=== PATIENT | female | born 1950 | race Caucasian/White ===

== ENCOUNTER 2017-03-15 17:37 | Emergency (ER) | payer SELFPAY ==
[2017-03-15] MEDS ORDERED: NORMAL SALINE 1000 ML 500 ML IV ONE (19:07)
--- NOTE | 2017-03-15 19:10 | ER Document Report ---
ED Medical Screen (RME) - General Chief Complaint: Chest Wall Injury Stated Complaint: STOMACH PAIN Time Seen by Provider: 03/15/17 18:55 Notes: 66-year-old female here pain radiating to the left chest ongoing for the past 1- 2 weeks but has progressively worsened here recently. She has also had associated lightheadedness and diaphoresis with the chest pain. She has been taking ibuprofen which initially did help with the symptoms however has not been helping recently. The symptoms started after a rocking chair hit her in the middle of her chest. Patient states that the chest pain is worse with [place] as well as moving her torso. She does not normally have a high heart rate and does not know what her normal heart rate is. No prior history of PE/DVT but states that multiple family members have had blood clots. No estrogen use. No prior history of cancer. EXAM Tachycardic low 100s Clear to auscultation bilaterally Mild tenderness to palpation inferior sternum - Related Data Allergies/Adverse Reactions: codeine Allergy (Verified 03/15/17 18:51) paroxetine [From Paxil] Allergy (Verified 03/15/17 18:52) Sulfa (Sulfonamide Antibiotics) Allergy (Verified 03/15/17 18:52) Past Medical History - Social History Chew tobacco use (# tins/day): No Frequency of alcohol use: None Drug Abuse: None Renal/ Medical History: Denies: Hx Peritoneal Dialysis Psychiatric Medical History: Reports: Hx Depression - insomia Past Surgical History: Reports: Hx Abdominal Surgery - gastric bypass, Hx Cholecystectomy, Hx Vascular Surgery - breast reduction, tummy tuck Physical Exam - Vital signs Vitals: Temp Pulse Resp BP Pulse Ox 98.2 F 106 H 18 131/91 H 97 03/15/17 18:14 03/15/17 18:14 03/15/17 18:14 03/15/17 18:14 03/15/17 18:14 Course - Vital Signs Vital signs: Temp Pulse Resp BP Pulse Ox 98.2 F 106 H 18 131/91 H 97 03/15/17 18:14 03/15/17 18:14 03/15/17 18:14 03/15/17 18:14 03/15/17 18:14
[2017-03-15 19:37] LABS: ABSOLUTE EOSINOPHILS # (AUTO) 0.1 10^3/uL (0.0-0.6); ABSOLUTE LYMPHOCYTES (AUTO) 2.1 10^3/uL (0.5-4.7); ABSOLUTE MONOCYTES (AUTO) 0.4 10^3/uL (0.1-1.4); ABSOLUTE NEUT (AUTO) 4.7 10^3/uL (1.7-8.2); BASOPHILS % (AUTO) 0.5 % (0-2); EOSINOPHILS % (AUTO) 1.6 % (0-6); HEMATOCRIT 41.7 % (36.0-47.0); LYMPHOCYTES % (AUTO) 28.9 % (13-45); MEAN CORPUSCULAR HGB CONC 33.6 g/dL (32.0-36.0); MEAN CORPUSCULAR VOLUME 86 fl (80-97); PLATELET COUNT 327 10^3/uL (150-450); RED BLOOD COUNT 4.84 10^6/uL (3.72-5.28); TOTAL CELLS COUNTED % (AUTO) 100 %; WHITE BLOOD COUNT 7.4 10^3/uL (4.0-10.5)
[2017-03-15 20:01] LABS: ANION GAP 13 (5-19); BLOOD UREA NITROGEN 21 mg/dL (7-20); CALCIUM 10.2 mg/dL (8.4-10.2); CARBON DIOXIDE 30 mmol/L (22-30); CHLORIDE 101 mmol/L (98-107); GLUCOSE 119 mg/dL (75-110); POTASSIUM 4.3 mmol/L (3.6-5.0); SODIUM 143.6 mmol/L (137-145)
[2017-03-15] MEDS ORDERED: NORMAL SALINE 1000 ML 1,000 ML IV ONE (20:55)
[2017-03-15] MEDS ORDERED: LIDOCAINE 5% (700 MG) TRANSDERMAL ADH..PATCH TP ONE (20:56)
--- NOTE | 2017-03-15 20:58 | ER Document Report ---
ED General - General Chief Complaint: Chest Wall Injury Stated Complaint: STOMACH PAIN Time Seen by Provider: 03/15/17 18:55 Notes: Patient is a 66-year-old female without past medical history who presents with 3 weeks to 1 month of chest wall discomfort that has gotten progressively worse. Patient states that she was struck in the chest with the back of a rocking chair approximately 3 weeks ago. She states in the rocking chair hit her chest she heard a crack and has had a severe, constant, throbbing pain in the central chest radiating to her left lower ribs since that time. She says the pain is worsened by taking a deep breath. She has tried ibuprofen with improvement of the pain. She was seen in urgent care several days ago and told that her ribs were bruised that would require time to heal. However she states that she began to feel more short of breath for the last several days which is what prompted her to come to the emergency department for further assessment. Patient does also note that she recently started a weight loss supplement over- the-counter and has been feeling some side effects as a result of this medication including frequent diaphoresis, somewhat increased shakiness and tremulousness, as well as nausea. She notes decreased oral intake since beginning this medication. She denies any hemoptysis. No history of DVT or pulmonary embolus. She does not take any form of estrogen. - Related Data Allergies/Adverse Reactions: codeine Allergy (Verified 03/15/17 18:51) paroxetine [From Paxil] Allergy (Verified 03/15/17 18:52) Sulfa (Sulfonamide Antibiotics) Allergy (Verified 03/15/17 18:52) Past Medical History - General Information source: Patient - Social History Smoking Status: Former Smoker Chew tobacco use (# tins/day): No Frequency of alcohol use: None Drug Abuse: None Family History: Reviewed & Not Pertinent Patient has suicidal ideation: No Patient has homicidal ideation: No Renal/ Medical History: Denies: Hx Peritoneal Dialysis Psychiatric Medical History: Reports: Hx Depression - insomia Past Surgical History: Reports: Hx Abdominal Surgery - gastric bypass, Hx Cholecystectomy, Hx Vascular Surgery - breast reduction, tummy tuck Review of Systems - Review of Systems Notes: Constitutional: Negative for fever. HENT: Negative for sore throat. Eyes: Negative for visual changes. Cardiovascular: Positive for chest pain. Respiratory: Positive for shortness of breath. Gastrointestinal: Negative for abdominal pain, vomiting or diarrhea. Genitourinary: Negative for dysuria. Musculoskeletal: Negative for back pain. Skin: Negative for rash. Neurological: Negative for headaches, weakness or numbness. 10 point ROS negative except as marked above and in HPI. Physical Exam - Vital signs Vitals: Temp Pulse Resp BP Pulse Ox 98.2 F 106 H 18 131/91 H 97 03/15/17 18:14 03/15/17 18:14 03/15/17 18:14 03/15/17 18:14 03/15/17 18:14 Interpretation: Tachycardic Notes: PHYSICAL EXAMINATION: GENERAL: Well-appearing, well-nourished and in no acute distress. HEAD: Atraumatic, normocephalic. EYES: Pupils equal round and reactive to light, extraocular movements intact, sclera anicteric, conjunctiva are normal. ENT: nares patent, oropharynx clear without exudates. Moist mucous membranes. NECK: Normal range of motion, supple without lymphadenopathy LUNGS: Breath sounds clear to auscultation bilaterally and equal. No wheezes rales or rhonchi. HEART: Regular tachycardia without murmurs Chest wall: There is mild bruising underneath the lower ribs on the left side as well as over the tissue overlying the xiphoid process ABDOMEN: Soft, nontender, normoactive bowel sounds. No guarding, no rebound. No masses appreciated. EXTREMITIES: Normal range of motion, no pitting or edema. No cyanosis. NEUROLOGICAL: No focal neurological deficits. Moves all extremities spontaneously and on command. PSYCH: Normal mood, normal affect. SKIN: Warm, Dry, normal turgor, no rashes or lesions noted. Course - Re-evaluation Re-evalutation: 03/15/17 20:56 Patient presents with 2-3 weeks of ongoing central chest pain radiating into her left lower intercostal spaces after being struck in the chest with a rocking chair. However, patient does have abnormal vital signs on presentation with a prominent tachycardia. Her heart rate jumps from 108-136 when going from sitting to standing position I do suspect a component of orthostasis. However given her pleuritic chest pain the persistency of her symptoms I do also agree that a CT of the chest should be performed to exclude an acute pulmonary embolus. Given that her symptoms have been persistent now for almost a month a D-dimer assay test will unfortunately not be reliable to exclude a PE as this would be a chronic pulmonary embolus at this point. Will provide IV fluids, pain control, and reassess after CT has been completed. Labs are unremarkable. I do not clinically suspect an aortic dissection or ACS given clinical history and exam. Patient is overall extremely well in appearance and in no distress. She does note that she recently started taking a weight loss supplement which may also be contribute into her tachycardia. 03/15/17 22:15 CT of the chest is normal without any evidence of acute fracture or pulmonary emboli. Patient's heart has normalized and she states she feels much much better after fluids. Suspect that her symptoms are overall secondary to bruising of the chest wall from blunt trauma as well as dehydration and a medication effect. We discussed this at length. At this time will discharge with return precautions and follow-up recommendations. Verbal discharge instructions given a the bedside and opportunity for questions given. Medication warnings reviewed. Patient is in agreement with this plan and has verbalized understanding of return precautions and the need for primary care follow-up in the next 24-72 hours. - Vital Signs Vital signs: Temp Pulse Resp BP Pulse Ox 98.2 F 106 H 16 138/89 H 96 03/15/17 18:14 03/15/17 18:14 03/15/17 22:00 03/15/17 22:00 03/15/17 22:00 - Laboratory Result Diagrams: 03/15/17 19:27 03/15/17 19:27 Laboratory results interpreted by me: 03/15/17 19:27 BUN 21 H Glucose 119 H - Diagnostic Test Radiology reviewed: Reports reviewed Discharge - Discharge Clinical Impression: Chest wall pain, Orthostasis, Dehydration Condition: Good Disposition: HOME, SELF-CARE Additional Instructions: Your CT scan today does not show any fractures of your sternum or ribs. Thankfully, it does not show any evidence of a clot in your lung either. Please continue to take plenty of fluids. Continue take ibuprofen or Tylenol as needed for discomfort. You can also apply heat or cold to the area if it helps your pain. Please follow-up with your primary care doctor in the next several days. Return for any additional concerns your may have including worsening of your pain, coughing blood, passing out, worsening shortness of breath, or any other symptoms that are worrisome to you. Referrals: JAYA LAWSON FNP [Primary Care Provider] - Follow up as needed
--- NOTE | 2017-03-15 22:02 | RADIOLOGY REPORT (SQ) ---
EXAM DESCRIPTION: CTA CHEST COMPLETED DATE/TIME: 03/15/2017 9:15 pm REASON FOR STUDY: CP tachycardic; eval for PE COMPARISON: None. TECHNIQUE: CT scan of the chest performed using helical scanning technique with dynamic intravenous contrast injection. Images reviewed with lung, soft tissue and bone windows. Reconstructed coronal and sagittal MPR images reviewed. Additional 3 dimensional post-processing performed to develop Maximal Intensity Projection images (MD P). All images stored on PACS. All CT scanners at this facility use dose modulation, iterative reconstruction, and/or weight based d osing when appropriate to reduce radiation dose to as low as reasonably achievable (ALARA). [facility]: Dose Right [facility]: CareDose [facility]: Dose Right [facility]: Teradose 4D [facility]: Clinical Insight CONTRAST TYPE AND DOSE: contrast/concentration: Isovue 370.00 mg/ml; Total Contrast Delivered: 74.0 ml; Total Saline Delivered: 40.0 ml RENAL FUNCTION: GFR > 60. RADIATION DOSE: CT Rad equipment meets quality standard of care and radiation dose reduction techniq ues were employed. CTDIvol: 9.9 - 19.9 mGy. DLP: 723 mGy-cm. . LIMITATIONS: Contrast bolus not optimized for the pulmonary arteries. FINDINGS: LUNGS AND PLEURA: No masses, consolidation, pneumothorax. Minimal basilar subsegmental at electasis -subpleural scarring. No pleural effusions, calcifications. AORTA AND GREAT VESSELS: No aneurysm. Contrast bolus not optimized for the aorta. HEART: No pericardial effusion. No significant coronary artery calcifications. PULMONARY ARTERIES: No emboli visualized in the main pulmonary arteries. Contrast bolus timing limit s evaluation of the segmental branches. HILAR AND MEDIASTINAL STRUCTURES: No identified masses or abnormal nodes. HARDWARE: None in the chest. UPPER ABDOMEN: No significant findings. Limited exam. THYROID AND OTHER SOFT TISSUES: No masses. No adenopathy. BONES: No acute finding. Multiple old left rib fractures 3D MIPS: Confirm above findings. OTHER: No other significant finding. IMPRESSION: No emboli visualized in the main pulmonary arteries. Contrast bolus timing limits evalu ation of the segmental branches. No consolidation or pleural effusion. COMMENT: Quality ID # [id number]: Final reports with documentation of one or more dose reduction techniques (e.g., Automated exposure control, adjustment of the mA and/or kV according to patient size, use of iterative reconstruction technique) TECHNICAL DOCUMENTATION: JOB ID: [id number] [place]-72 2010 [facility] [employer]- All Rights Reserved
[2017-03-15 22:10] VITALS: BP 138/89
== END 2017-03-15 22:49 | disposition home or self-care (01) ==
LOC: ER 17:37
DX: S20.212A Contusion of left front wall of thorax, initial encounter (principal); R07.89 Other chest pain; W22.8XXA Striking against or struck by other objects, initial encounter; E86.0 Dehydration; R06.02 Shortness of breath; R61 Generalized hyperhidrosis; R00.0 Tachycardia, unspecified; R11.0 Nausea; R25.1 Tremor, unspecified; Z88.5 Allergy status to narcotic agent; Z88.8 Allergy status to other drugs, medicaments and biological substances; Z88.2 Allergy status to sulfonamides; Z87.891 Personal history of nicotine dependence; Z98.84 Bariatric surgery status
CPT/HCPCS: 99284; 36415; 85025; 80048; 84484; 71275; J7030

== ENCOUNTER 2017-03-24 17:36 | Emergency (ER) | payer SELFPAY ==
[2017-03-24] MEDS ORDERED: NORMAL SALINE 1000 ML 1,000 ML IV ONE (18:37)
[2017-03-24] MEDS ORDERED: HALOPERIDOL LACTATE INJ 5 MG/1 ML VIAL IV ONE (18:37)
[2017-03-24] MEDS ORDERED: DIPHENHYDRAMINE HCL 50 MG/ML VIAL IV ONE (18:37)
--- NOTE | 2017-03-24 18:38 | ER Document Report ---
ED Medical Screen (RME) - General Chief Complaint: Abdominal Pain Stated Complaint: ABDOMINAL PAIN Time Seen by Provider: 03/24/17 18:35 Mode of Arrival: Ambulatory Information source: Patient Notes: 66-year-old female presents with complaints of nausea vomiting diarrhea believing that she is got food poisoning from on the soup. Patient states she cannot sit up and lays herself on the floor I have greeted and performed a rapid initial assessment of this patient. A comprehensive ED assessment and evaluation of the patient, analysis of test results and completion of the medical decision making process will be conducted by additional ED providers. PHYSICAL EXAMINATION: GENERAL patient is quite dramatic laying herself on the floor HEAD: Atraumatic, normocephalic. EYES: Pupils equal round extraocular movements intact, conjunctiva are normal. ENT: Nares patent NECK: Normal range of motion LUNGS: No respiratory distress Musculoskeletal: Normal range of motion NEUROLOGICAL: Normal speech, normal gait. PSYCH: Anxious SKIN: Warm, Dry, normal turgor, no rashes or lesions noted. TRAVEL OUTSIDE OF THE [place] IN LAST 30 DAYS: No - Related Data Allergies/Adverse Reactions: codeine Allergy (Verified 03/24/17 17:39) paroxetine [From Paxil] Allergy (Verified 03/24/17 17:39) Sulfa (Sulfonamide Antibiotics) Allergy (Verified 03/24/17 17:39) Past Medical History Renal/ Medical History: Denies: Hx Peritoneal Dialysis Psychiatric Medical History: Reports: Hx Depression - insomia Past Surgical History: Reports: Hx Abdominal Surgery - gastric bypass, Hx Cholecystectomy, Hx Vascular Surgery - breast reduction, tummy tuck Physical Exam - Vital signs Vitals: Temp Pulse Resp BP Pulse Ox 98.5 F 110 H 20 113/82 98 03/24/17 17:45 03/24/17 17:45 03/24/17 17:45 03/24/17 17:45 03/24/17 17:45 Course - Vital Signs Vital signs: Temp Pulse Resp BP Pulse Ox 98.5 F 110 H 20 113/82 98 03/24/17 17:45 03/24/17 17:45 03/24/17 17:45 03/24/17 17:45 03/24/17 17:45
[2017-03-24] MEDS ORDERED: MORPHINE SULFATE 10 MG/ML INJ IV ONE (19:40)
[2017-03-24] MEDS ORDERED: ONDANSETRON HCL INJ/PF 4 MG/2 ML SDV IV ONE (19:40)
[2017-03-24] MEDS ORDERED: SUCRALFATE 1 GM TABLET PO ONE (19:43)
[2017-03-24] MEDS ORDERED: FAMOTIDINE 20 MG TABLET PO ONE (19:43)
--- NOTE | 2017-03-24 19:43 | ER Document Report ---
ED GI/ - General Chief Complaint: Abdominal Pain Stated Complaint: ABDOMINAL PAIN Time Seen by Provider: 03/24/17 18:35 Mode of Arrival: Ambulatory Notes: Patient is a 66-year-old female who comes emergency department for chief complaint of vomiting and diarrhea. She states she has had about 20 episodes of diarrhea starting this morning. She states that she has a lot of belching with "[place] onion soup taste". That was the last thing she ate last night. She denies fever or chills, sick contacts, flank pain. Pain is mostly lower abdomen. She denies any raw food, recent travel, recent antibiotics. Past medical history of gastric bypass, insomnia. TRAVEL OUTSIDE OF THE [place] IN LAST 30 DAYS: No - Related Data Allergies/Adverse Reactions: codeine Allergy (Verified 03/24/17 17:39) paroxetine [From Paxil] Allergy (Verified 03/24/17 17:39) Sulfa (Sulfonamide Antibiotics) Allergy (Verified 03/24/17 17:39) Past Medical History - General Information source: Patient - Social History Smoking Status: Never Smoker Chew tobacco use (# tins/day): No Frequency of alcohol use: Occasional Drug Abuse: None Lives with: Family Family History: Reviewed & Not Pertinent Patient has suicidal ideation: No Patient has homicidal ideation: No Renal/ Medical History: Denies: Hx Peritoneal Dialysis Psychiatric Medical History: Reports: Hx Depression - insomia Past Surgical History: Reports: Hx Abdominal Surgery - gastric bypass, Hx Cholecystectomy, Hx Vascular Surgery - breast reduction, tummy tuck Review of Systems - Review of Systems Constitutional: No symptoms reported EENT: No symptoms reported Cardiovascular: No symptoms reported Respiratory: No symptoms reported Gastrointestinal: See HPI Genitourinary: No symptoms reported Female Genitourinary: No symptoms reported Musculoskeletal: No symptoms reported Skin: No symptoms reported Hematologic/Lymphatic: No symptoms reported Neurological/Psychological: No symptoms reported Physical Exam - Vital signs Vitals: Temp Pulse Resp BP Pulse Ox 98.5 F 110 H 20 113/82 98 03/24/17 17:45 03/24/17 17:45 03/24/17 17:45 03/24/17 17:45 03/24/17 17:45 Interpretation: Normal - General General appearance: Appears well, Alert In distress: None - HEENT Head: Normocephalic, Atraumatic Eyes: Normal Pupils: PERRL - Respiratory Respiratory status: No respiratory distress Chest status: Nontender Breath sounds: Normal Chest palpation: Normal - Cardiovascular Rhythm: Regular. No: Tachycardia - No tachycardia on my exam Heart sounds: Normal auscultation, S1 appreciated, S2 appreciated Murmur: No - Abdominal Inspection: Normal Distension: No distension Bowel sounds: Normal Tenderness: Nontender. No: Tender - Soft benign abdomen Organomegaly: No organomegaly - Back Back: Normal, Nontender. No: Tender - Extremities General upper extremity: Normal inspection, Nontender, Normal strength, Normal temperature General lower extremity: Normal inspection, Nontender, Normal strength, Normal temperature - Neurological Neuro grossly intact: Yes Cognition: Normal Orientation: AAOx4 [place] Coma Scale Eye Opening: Spontaneous [place] Coma Scale Verbal: Oriented [place] Coma Scale Motor: Obeys Commands [place] Coma Scale Total: 15 Speech: Normal Motor strength normal: LUE, RUE, LLE, RLE Sensory: Normal - Psychological Associated symptoms: Normal affect, Normal mood - Skin Skin Temperature: Warm Skin Moisture: Dry Skin Color: Normal Course - Re-evaluation Re-evalutation: Patient alert, slightly dramatic, well-appearing, has mildly dry mucous membranes and mild tachycardia. Abdominal exam has very minimal lower abdominal tenderness without guarding. Treating symptomatically, rehydrating, checking labs and stool. CBC, chemistry unremarkable. Patient gets very anxious and shifty when she has her vital signs checked and the results were tachycardic, however patient is not tachycardic when I am listening to her. After medications, fluids, patient tolerating p.o. without any difficulty, walking around, asking to leave. Diarrhea does not show any concerning abnormalities. Because she is tolerating p.o., has benign abdomen, does not have any concerning findings, and is not tachycardic on my exam, and is not hypotensive, she was discharged with medications, follow-up, and return precautions. Patient states satisfaction and agreement. - Vital Signs Vital signs: Temp Pulse Resp BP Pulse Ox 99.5 F 118 H 16 120/65 95 03/24/17 22:31 03/24/17 22:31 03/24/17 22:31 03/24/17 22:31 03/24/17 22:31 - Laboratory Result Diagrams: 03/24/17 20:23 03/24/17 20:23 Laboratory results interpreted by me: 03/24/17 03/24/17 20:23 20:23 Seg Neuts % (Manual) 87 H Lymphocytes % (Manual) 7 L Monocytes % (Manual) 2 L Abs Neuts (Manual) 8.7 H Potassium 5.1 H BUN 34 H Glucose 163 H Alkaline Phosphatase 132 H Discharge - Discharge Clinical Impression: Nausea vomiting and diarrhea, Dehydration Condition: Stable Disposition: HOME, SELF-CARE Additional Instructions: Continue to rehydrate, start with bland food and slowly progress. Your symptoms and workup are most consistent with a viral gastroenteritis. We have a stool culture growing in our lab just in case. Take the given medication tonight as directed if needed, take the Carafate daily as prescribed as well. Follow-up with primary care. Return if you worsen including uncontrolled vomiting, spiking fevers, black or bloody bowel movements, or any other concerning symptoms. Prescriptions: Ondansetron [Zofran Odt 4 mg Tablet] 1 - 2 tab PO Q4H PRN #15 tab.rapdis PRN Reason: For Nausea/Vomiting Sucralfate [Carafate 1 gm Tablet] 1 gm PO QID #20 tablet
[2017-03-24 20:53] LABS: HEMATOCRIT 43.7 % (36.0-47.0); HEMOGLOBIN 14.7 g/dL (12.0-15.5); MEAN CORPUSCULAR HEMOGLOBIN 28.9 pg (27.0-33.4); MEAN CORPUSCULAR HGB CONC 33.8 g/dL (32.0-36.0); MEAN CORPUSCULAR VOLUME 86 fl (80-97); PLATELET COUNT 300 10^3/uL (150-450); WHITE BLOOD COUNT 9.7 10^3/uL (4.0-10.5)
[2017-03-24 20:55] LABS: ALANINE AMINOTRANSFERASE 31 U/L (9-52); ALBUMIN 4.6 g/dL (3.5-5.0); ALKALINE PHOSPHATASE 132 U/L (38-126); ANION GAP 14 (5-19); ASPARTATE AMINO TRANSFERASE 30 U/L (14-36); BILIRUBIN,DIRECT 0.3 mg/dL (0.0-0.4); BILIRUBIN,TOTAL 0.8 mg/dL (0.2-1.3); BLOOD UREA NITROGEN 34 mg/dL (7-20); CARBON DIOXIDE 23 mmol/L (22-30); CHLORIDE 107 mmol/L (98-107); GLUCOSE 163 mg/dL (75-110); LIPASE 45.4 U/L (23-300); POTASSIUM 5.1 mmol/L (3.6-5.0); SODIUM 143.8 mmol/L (137-145); TOTAL PROTEIN 7.6 g/dL (6.3-8.2)
[2017-03-24 21:09] LABS: ABSOLUTE LYMPHOCYTES# (MANUAL) 0.8 10^3/uL (0.5-4.7); ABSOLUTE MONOCYTES # (MANUAL) 0.2 10^3/uL (0.1-1.4); ABSOLUTE NEUTROPHILS# (MANUAL) 8.7 10^3/uL (1.7-8.2); BAND NEUTROPHILS % (MANUAL) 3 % (3-5); BASOPHILS % (MANUAL) 0 % (0-2); EOSINOPHILS % (MANUAL) 0 % (0-6); LYMPHOCYTES % (MANUAL) 7 % (13-45); MONOCYTES % (MANUAL) 2 % (3-13); SEGMENTED NEUTROPHILS % (MAN) 87 % (42-78); TOTAL CELLS COUNTED 100
[2017-03-24 21:12] LABS: PLATELET COMMENT ADEQUATE; RBC MORPHOLOGY COMMENT NORMO-CYTIC/CHROMIC
[2017-03-24] MEDS ORDERED: ONDANSETRON ODT 4 MG TAB (6 TAB/ER DISP) PO PRN (22:14)
[2017-03-24] MEDS ORDERED: HYDROCODONE/ACETAMINOPHEN 5-325 MG (6 TAB/ER DISP) PO PRN (22:14)
[2017-03-24 22:40] VITALS: BP 120/65
== END 2017-03-24 22:40 | disposition home or self-care (01) ==
LOC: ER 17:36
DX: E86.0 Dehydration (principal); R11.2 Nausea with vomiting, unspecified; R19.7 Diarrhea, unspecified; R10.9 Unspecified abdominal pain; Z88.6 Allergy status to analgesic agent; Z88.2 Allergy status to sulfonamides; Z98.84 Bariatric surgery status; Z90.49 Acquired absence of other specified parts of digestive tract
CPT/HCPCS: 99284; 96361; 96374; 96375; 36415; 87045; 89055; 87205; 83690; 85025; 82272; 87077; 80053; 87186; 87493; J2270; J2405; J7030

== ENCOUNTER 2018-06-30 23:55 | Emergency (ER) | payer MEDICARE ==
--- NOTE | 2018-07-01 01:50 | ER Document Report ---
ED General - General Chief Complaint: Numbness of Arm Stated Complaint: NUMBNESS Time Seen by Provider: 07/01/18 00:26 Notes: Patient is a 67-year-old female without chronic medical problems who presents with paresthesias of her left upper extremity as well as a paresthesia in a circular area below her left lip. States that the symptoms started approximately 7-8 hours prior to arrival. States that initially it was just in her left upper extremity. Describes it as a relatively abrupt onset of a tingling, sleeping sensation the entirety of her left upper extremity but most prominent in the fingertips. Patient states that she began reading online what this could be, decided to take aspirin but then began to feel some tingling below her left lip. This scared her very much so she came to the emergency department for further assessment. Nothing has been noted to improve or worsen her symptoms since onset. She denies any history of similar symptoms in the past. She has not seen her primary doctor regarding today's concerns. She denies any loss of sensation, difficulty walking, difficulty speaking, headache, neck pain, or chest discomfort. She regards her symptoms as being mild to moderate. Constant since onset and still present. TRAVEL OUTSIDE OF THE [place] IN LAST 30 DAYS: No - Related Data Allergies/Adverse Reactions: codeine Allergy (Verified 03/24/17 17:39) paroxetine [From Paxil] Allergy (Verified 03/24/17 17:39) Sulfa (Sulfonamide Antibiotics) Allergy (Verified 03/24/17 17:39) Past Medical History - General Information source: Patient - Social History Smoking Status: Former Smoker Chew tobacco use (# tins/day): Yes Frequency of alcohol use: None Drug Abuse: None Lives with: Alone Family History: Reviewed & Not Pertinent Patient has suicidal ideation: No Patient has homicidal ideation: No Renal/ Medical History: Denies: Hx Peritoneal Dialysis Psychiatric Medical History: Reports: Hx Depression - insomia Past Surgical History: Reports: Hx Abdominal Surgery - gastric bypass, Hx Cholecystectomy, Hx Vascular Surgery - breast reduction, tummy tuck Review of Systems - Review of Systems Notes: Constitutional: Negative for fever. HENT: Negative for sore throat. Eyes: Negative for visual changes. Cardiovascular: Negative for chest pain. Respiratory: Negative for shortness of breath. Gastrointestinal: Negative for abdominal pain, vomiting or diarrhea. Genitourinary: Negative for dysuria. Musculoskeletal: Negative for back pain. Skin: Negative for rash. Neurological: Negative for headaches, positive for paresthesias to the left upper extremity and below the left lip 10 point ROS negative except as marked above and in HPI. Physical Exam - Vital signs Vitals: Temp Pulse Resp BP Pulse Ox 98.6 F 68 15 136/83 H 96 06/30/18 23:55 06/30/18 23:55 06/30/18 23:55 06/30/18 23:55 06/30/18 23:55 Interpretation: Normal Notes: PHYSICAL EXAMINATION: GENERAL: Well-appearing, well-nourished and in no acute distress. HEAD: Atraumatic, normocephalic. EYES: Pupils equal round and reactive to light, extraocular movements intact, sclera anicteric, conjunctiva are normal. ENT: nares patent, oropharynx clear without exudates. Moist mucous membranes. NECK: Normal range of motion, supple without lymphadenopathy LUNGS: Breath sounds clear to auscultation bilaterally and equal. No wheezes rales or rhonchi. HEART: Regular rate and rhythm without murmurs ABDOMEN: Soft, nontender, normoactive bowel sounds. No guarding, no rebound. No masses appreciated. EXTREMITIES: Normal range of motion, no pitting or edema. No cyanosis. NEUROLOGICAL: Face symmetric. Tongue protrudes midline. Extraocular motions intact. Pupils are 2 mm and equally reactive. Normal speech, normal gait. 5 out of 5 strength in both the distal and proximal upper and lower extremities bilaterally. Sensation is grossly intact throughout. Finger to nose testing normal. Pronator drift normal. PSYCH: Moderately anxious SKIN: Warm, Dry, normal turgor, no rashes or lesions noted. Course - Re-evaluation Re-evalutation: 07/01/18 01:34 Patient presents with paresthesias of the left upper extremity as well as a small portion of paresthesia around her left lower face. She states the circular area just below the level of her lip. And a stroke scale 0. Patient has no loss of sensation. Able to ambulate without any difficulty. No motor weakness. No headache, neck pain or confusion. Patient's clinical history is not consistent with an acute stroke given distribution and characterization of her symptoms. There is nothing to suggest that the patient has any sensory loss and again her neurologic exam is completely unremarkable. Moreover the pattern of her sensory complaint is not consistent with a central pattern. Labs do not suggest atypical presentation of ACS. Patient's symptoms been ongoing for greater than 8 hours at time of presentation I do not believe serial troponins are indicated particularly given my low clinical suspicion for a cardiac etiology of her symptoms. I advised that should the patient persist with symptoms for greater than 24more she should follow with her primary care doctor for an MRI of her head to definitively exclude again for which have a very low suspicion. At this time will discharge with return precautions and follow-up recommendations. Verbal discharge instructions given a the bedside and opportunity for questions given. Medication warnings reviewed. Patient is in agreement with this plan and has verbalized understanding of return precautions and the need for primary care follow-up in the next 24-72 hours. - Vital Signs Vital signs: Temp Pulse Resp BP Pulse Ox 98.6 F 68 19 142/83 H 97 06/30/18 23:55 06/30/18 23:55 07/01/18 03:01 07/01/18 03:01 07/01/18 03:01 - Laboratory Result Diagrams: 07/01/18 01:49 07/01/18 01:49 Laboratory results interpreted by me: 07/01/18 01:49 Chloride 108 H Carbon Dioxide 21 L - EKG Interpretation by Me Additional EKG results interpreted by me: 07/01/18 01:51 Sinus rhythm, rate 69. No ST elevations or depressions. QTC is 429. Discharge - Discharge Clinical Impression: Paresthesia of left upper extremity, Facial paresthesia Condition: Good Disposition: HOME, SELF-CARE Additional Instructions: You were seen today for numbness and tingling that does not appear to be from a stroke or any other life threatening cause. Labs are normal. Please follow-up with your primary care doctor within the next 24-48 hours. MRI of your head will be reasonable if your symptoms do not resolve spontaneously. Return if you develop loss of sensation, weakness, pass out, develop a severe headache, chest pain or any other symptoms that are worrisome to you.
[2018-07-01 02:03] LABS: ABSOLUTE EOSINOPHILS # (AUTO) 0.2 10^3/uL (0.0-0.6); ABSOLUTE LYMPHOCYTES (AUTO) 2.2 10^3/uL (0.5-4.7); ABSOLUTE MONOCYTES (AUTO) 0.5 10^3/uL (0.1-1.4); ABSOLUTE NEUT (AUTO) 3.9 10^3/uL (1.7-8.2); BASOPHILS % (AUTO) 0.7 % (0-2); EOSINOPHILS % (AUTO) 2.2 % (0-6); HEMATOCRIT 38.9 % (36.0-47.0); HEMOGLOBIN 13.1 g/dL (12.0-15.5); LYMPHOCYTES % (AUTO) 32.7 % (13-45); MEAN CORPUSCULAR HEMOGLOBIN 28.9 pg (27.0-33.4); MEAN CORPUSCULAR HGB CONC 33.7 g/dL (32.0-36.0); MEAN CORPUSCULAR VOLUME 86 fl (80-97); PLATELET COUNT 258 10^3/uL (150-450); RED BLOOD COUNT 4.54 10^6/uL (3.72-5.28); RED CELL DISTRIBUTION WIDTH 13.8 % (11.5-14.0); SEGMENTED NEUTROPHILS % (AUTO) 57.4 % (42-78); TOTAL CELLS COUNTED % (AUTO) 100 %; WHITE BLOOD COUNT 6.9 10^3/uL (4.0-10.5)
[2018-07-01 02:16] LABS: ANION GAP 10 (5-19); BLOOD UREA NITROGEN 17 mg/dL (7-20); CALCIUM 9.6 mg/dL (8.4-10.2); CARBON DIOXIDE 21 mmol/L (22-30); CHLORIDE 108 mmol/L (98-107); GLUCOSE 99 mg/dL (75-110); POTASSIUM 3.8 mmol/L (3.6-5.0); SODIUM 139.1 mmol/L (137-145)
[2018-07-01 03:26] VITALS: BP 142/83
--- NOTE | 2018-07-01 23:38 | EKG REPORT ---
SEVERITY:- ABNORMAL ECG - SINUS RHYTHM LEFT ATRIAL ABNORMALITY : Confirmed by: Gabbi Cam 01-Jul-2018 23:38:02
== END 2018-07-01 03:50 | disposition home or self-care (01) ==
LOC: ER 23:55
DX: R20.2 Paresthesia of skin (principal); Z87.891 Personal history of nicotine dependence; Z88.5 Allergy status to narcotic agent; Z88.8 Allergy status to other drugs, medicaments and biological substances; Z88.2 Allergy status to sulfonamides
CPT/HCPCS: 36415; 80048; 84484; 85025; 93005; 93010; 99284